=== PATIENT | female | born 1945 | race Caucasian/White ===

== ENCOUNTER → 2016-09-19 | Outpatient (CLI) | payer MEDICARE ==
[~2016-09-19] MED LIST: DICL75TA2 PO; LEVO75TA57 PO; LEVO75TA6 PO; LVT.025T PO; TRAM50TA2 PO; TRM50T PO
[2016-09-19 09:48] LABS: BASOPHILS % (AUTO) 0 % (0-10); EOSINOPHILS # (AUTO) 0.1 10^3/uL (0.0-0.3); EOSINOPHILS % (AUTO) 2 % (0-10); LYMPHOCYTES # (AUTO) 1.4 X 10^3 (1.0-4.0); LYMPHOCYTES % (AUTO) 24 % (12-44); MEAN CORPUSCULAR HEMOGLOBIN 29 PG (25-34); MEAN CORPUSCULAR HGB CONC 33 G/DL (32-36); MEAN CORPUSCULAR VOLUME 89 FL (80-99); MEAN PLATELET VOLUME 9.4 FL (7.4-10.4); MONOCYTES # (AUTO) 0.5 X 10^3 (0.0-1.0); MONOCYTES % (AUTO) 9 % (0-12); NEUTROPHILS # (AUTO) 3.9 X 10^3 (1.8-7.8); NEUTROPHILS % (AUTO) 65 % (42-75); PLATELET COUNT 290 10^3/uL (130-400); RED CELL DISTRIBUTION WIDTH 13.9 % (10.0-14.5)
[2016-09-19 10:08] LABS: ALANINE AMINOTRANSFERASE 21 U/L (0-55); ALBUMIN 4.2 G/DL (3.2-4.5); ANION GAP 8 MMOL/L (5-14); ASPARTATE AMINO TRANSFERASE 20 U/L (5-34); BILIRUBIN,TOTAL 0.3 MG/DL (0.1-1.0); BLOOD UREA NITROGEN 16 MG/DL (7-18); BUN/CREATININE RATIO 21; CALCIUM 9.2 MG/DL (8.5-10.1); CARBON DIOXIDE 23 MMOL/L (21-32); CHLORIDE 110 MMOL/L (98-107); CREATININE SERUM 0.78 MG/DL (0.60-1.30); GFR ESTIMATED > 60; GLUCOSE 95 MG/DL (70-105); POTASSIUM 4.3 MMOL/L (3.6-5.0); SODIUM 141 MMOL/L (135-145); TOTAL PROTEIN 7.1 G/DL (6.4-8.2)
== END ==
LOC: ONC 09:25
PROVIDERS: ATTEND Internal Medicine Hematology & Oncology
DX: Z08 Encounter for follow-up examination after completed treatment for malignant neoplasm (principal); Z85.3 Personal history of malignant neoplasm of breast; N18.3 Chronic kidney disease, stage 3 (moderate); Z79.899 Other long term (current) drug therapy
CPT/HCPCS: 80053; 85025; 99213

== ENCOUNTER → 2016-09-19 | Outpatient (CLI) | payer MEDICARE ==
[2016-09-19 09:50] LABS: BASOPHILS % (AUTO) 0 % (0-10); EOSINOPHILS # (AUTO) 0.1 10^3/uL (0.0-0.3); EOSINOPHILS % (AUTO) 2 % (0-10); LYMPHOCYTES # (AUTO) 1.4 X 10^3 (1.0-4.0); LYMPHOCYTES % (AUTO) 24 % (12-44); MEAN CORPUSCULAR HEMOGLOBIN 29 PG (25-34); MEAN CORPUSCULAR HGB CONC 33 G/DL (32-36); MEAN CORPUSCULAR VOLUME 89 FL (80-99); MEAN PLATELET VOLUME 9.4 FL (7.4-10.4); MONOCYTES # (AUTO) 0.5 X 10^3 (0.0-1.0); MONOCYTES % (AUTO) 9 % (0-12); NEUTROPHILS # (AUTO) 3.9 X 10^3 (1.8-7.8); NEUTROPHILS % (AUTO) 65 % (42-75); PLATELET COUNT 290 10^3/uL (130-400); RED CELL DISTRIBUTION WIDTH 13.9 % (10.0-14.5)
[2016-09-19 11:09] LABS: ALANINE AMINOTRANSFERASE 22 U/L (0-55); ALBUMIN 4.2 G/DL (3.2-4.5); ANION GAP 9 MMOL/L (5-14); ASPARTATE AMINO TRANSFERASE 20 U/L (5-34); BILIRUBIN,TOTAL 0.3 MG/DL (0.1-1.0); BLOOD UREA NITROGEN 17 MG/DL (7-18); BUN/CREATININE RATIO 22; CALCIUM 9.2 MG/DL (8.5-10.1); CARBON DIOXIDE 22 MMOL/L (21-32); CHLORIDE 110 MMOL/L (98-107); CHOLESTEROL 220 MG/DL (< 200); CREATININE SERUM 0.79 MG/DL (0.60-1.30); DIRECT LDL 136 MG/DL (1-129); GFR ESTIMATED > 60; GLUCOSE 91 MG/DL (70-105); POTASSIUM 4.3 MMOL/L (3.6-5.0); SODIUM 141 MMOL/L (135-145); TOTAL PROTEIN 7.1 G/DL (6.4-8.2); TRIGLYCERIDES 173 MG/DL (<150); VLDL CHOLESTEROL 35 MG/DL (5-40)
[2016-09-19 11:43] LABS: THYROID STIMULATING HORMONE 1.53 UIU/ML (0.35-4.94)
== END ==
LOC: LAB 09:27
PROVIDERS: ATTEND Family Medicine
DX: E03.9 Hypothyroidism, unspecified (principal); R73.09 Other abnormal glucose
CPT/HCPCS: 36415; 80053; 80061; 83036; 84439; 84443; 85025

== ENCOUNTER → 2016-10-22 | Outpatient (CLI) | payer MEDICARE ==
--- NOTE | 2016-10-22 19:06 | Diagnostic Imaging Report ---
Bilateral diagnostic mammogram. The current study was also evaluated with a Computer Aided Detection (CAD) system. INDICATION: History of breast cancer on the left side status post lumpectomy and radiation. Comparison exams include 10/14/15 and other studies. FINDINGS: Scattered fibroglandular densities are seen. Lumpectomy changes are also seen in the left breast. There are punctate benign-appearing calcifications seen. Allowing for technique and positional differences, no suspicious change is seen. IMPRESSION: No significant change. ACR BI-RADS Category 2: Benign findings. Result letter will be mailed to the patient. Note: At least 10% of breast cancer is not imaged by mammography. Dictated by: Dictated on workstation # [id number]
== END ==
LOC: RAD 12:22
PROVIDERS: ATTEND Internal Medicine Hematology & Oncology
DX: Z85.3 Personal history of malignant neoplasm of breast; Z98.890 Other specified postprocedural states; Z92.3 Personal history of irradiation
CPT/HCPCS: 77066

== ENCOUNTER → 2017-03-21 | Outpatient (CLI) | payer MEDICARE ==
[2017-03-21 10:15] LABS: BASOPHILS % (AUTO) 0 % (0-10); EOSINOPHILS # (AUTO) 0.1 10^3/uL (0.0-0.3); EOSINOPHILS % (AUTO) 2 % (0-10); LYMPHOCYTES # (AUTO) 1.3 X 10^3 (1.0-4.0); LYMPHOCYTES % (AUTO) 22 % (12-44); MEAN CORPUSCULAR HEMOGLOBIN 30 PG (25-34); MEAN CORPUSCULAR HGB CONC 33 G/DL (32-36); MEAN CORPUSCULAR VOLUME 89 FL (80-99); MEAN PLATELET VOLUME 9.5 FL (7.4-10.4); MONOCYTES # (AUTO) 0.4 X 10^3 (0.0-1.0); MONOCYTES % (AUTO) 6 % (0-12); NEUTROPHILS # (AUTO) 4.1 X 10^3 (1.8-7.8); NEUTROPHILS % (AUTO) 70 % (42-75); PLATELET COUNT 299 10^3/uL (130-400); RED CELL DISTRIBUTION WIDTH 13.7 % (10.0-14.5); WHITE BLOOD COUNT 5.9 10^3/uL (4.3-11.0)
[2017-03-21 10:36] LABS: ALANINE AMINOTRANSFERASE 19 U/L (0-55); ALBUMIN 4.2 GM/DL (3.2-4.5); ANION GAP 8 MMOL/L (5-14); ASPARTATE AMINO TRANSFERASE 18 U/L (5-34); BILIRUBIN,TOTAL 0.5 MG/DL (0.1-1.0); BLOOD UREA NITROGEN 15 MG/DL (7-18); BUN/CREATININE RATIO 19; CALCIUM 9.3 MG/DL (8.5-10.1); CARBON DIOXIDE 24 MMOL/L (21-32); CHLORIDE 107 MMOL/L (98-107); CREATININE SERUM 0.81 MG/DL (0.60-1.30); GFR ESTIMATED > 60; GLUCOSE 105 MG/DL (70-105); POTASSIUM 4.2 MMOL/L (3.6-5.0); SODIUM 139 MMOL/L (135-145); TOTAL PROTEIN 7.1 GM/DL (6.4-8.2)
== END ==
LOC: ONC 09:57
PROVIDERS: ATTEND Nurse Practitioner Adult Health
DX: Z08 Encounter for follow-up examination after completed treatment for malignant neoplasm (principal); Z85.3 Personal history of malignant neoplasm of breast; N18.3 Chronic kidney disease, stage 3 (moderate); E03.9 Hypothyroidism, unspecified; M19.91 Primary osteoarthritis, unspecified site; M85.80 Other specified disorders of bone density and structure, unspecified site; Z82.49 Family history of ischemic heart disease and other diseases of the circulatory system; Z92.3 Personal history of irradiation; Z79.899 Other long term (current) drug therapy
CPT/HCPCS: 36415; 80053; 85025; 99213

== ENCOUNTER 2017-09-19 10:26 | Outpatient (RCR) | payer MEDICARE | END 2017-12-18 | disposition home or self-care (01) | LOC: ONC 10:26 | PROVIDERS: ATTEND Internal Medicine Hematology & Oncology | DX: Z08 Encounter for follow-up examination after completed treatment for malignant neoplasm (principal); Z85.3 Personal history of malignant neoplasm of breast; N18.3 Chronic kidney disease, stage 3 (moderate); E03.9 Hypothyroidism, unspecified; M19.91 Primary osteoarthritis, unspecified site; M85.80 Other specified disorders of bone density and structure, unspecified site; Z82.49 Family history of ischemic heart disease and other diseases of the circulatory system; Z92.3 Personal history of irradiation; Z79.899 Other long term (current) drug therapy | CPT/HCPCS: 99213 ==

== ENCOUNTER → 2017-10-24 | Outpatient (CLI) | payer MEDICARE ==
--- NOTE | 2017-10-24 13:18 | Diagnostic Imaging Report ---
INDICATION: 71-year-old postmenopausal female presents for bone density screening. History of cancer therapy. COMPARISON: 03/21/2012. FINDINGS: AP Spine L1-L4: [BMD (g/cm2): 1.309] [T-Score: 0.9] [Z-Score: 1.9] [BMD Previous: 1.155] [BMD % Change: 13.3] LT Hip Neck: [BMD (g/cm2): 0.924] [T-Score: -0.8] [Z-Score: 0.6] LT Hip Total: [BMD (g/cm2): 0.988] [T-Score: -0.2] [Z-Score: 1.0] RT Hip Neck: [BMD (g/cm2): 0.841] [T-Score: -1.4] [Z-Score: 0.0] RT Hip Total: [BMD (g/cm2): 0.935] [T-score: -0.6] [Z-Score: 0.6] The mean bone mineral density of both hips is 0.962 g/cm2, with a T score of -0.4 and a Z score of 0.8. There has been a 7.5% increase in mean hip bone mineral density since the prior study. *Indicates significant change from prior examination based on 95% confidence level. World Health Organization criteria for BMD interpretation classify patients as Normal (T-score at or above -1.0), Osteopenic (T-score between -1.0 and -2.5) or Osteoporotic (T-score at or below -2.5). LIMITATIONS AND MODIFICATION: Degenerative changes may falsely elevate the bone mineral density. FRACTURE RISK (FRAX SCORE): The ten year probability of (%): Major Osteoporotic Fracture: 10.0%. Hip Fracture:1.6% IMPRESSION: 1. Osteopenia, based on a T score of -1.4 in the right femoral neck. 2. There has been a statistically significant increase in BMD since prior exam, detailed above. 3. See below National Osteoporosis Foundation guidelines on when to potentially initiate pharmacologic therapy. Based on the National Osteoporosis Foundation Guidelines, pharmacologic treatment should be initiated in any of the following, unless clinical conditions suggest otherwise: * Any patient with prior fragility fracture of the hip or vertebrae. A spine fracture indicates 5X risk for subsequent spine fracture and 2X risk for subsequent hip fracture. * Osteoporosis (T-score <-2.5). * Postmenopausal women and men age 50 and older with low bone mass/osteopenia (T-score between -1.0 and -2.5) by DXA and 10-year major osteoporotic fracture greater than 20% or a 10-year probability of hip fracture greater than 3%. These fracture risks are supplied above in the FRAX score, if applicable. * Clinician judgment and/or patient preferences may indicate treatment for people with 10-year fracture probabilities above or below these levels. Dictated by: Dictated on workstation # [id number]
--- NOTE | 2017-10-24 19:31 | Diagnostic Imaging Report ---
INDICATION: Routine screening. Comparison is made with prior mammograms from 10/22/2016 and 10/14/2015. 2-D and 3-D bilateral screening mammography was performed. The current study was also evaluated with a Computer Aided Detection (CAD) system. FINDINGS: Scattered fibroglandular densities are identified bilaterally. There is a focal irregular density in the medial left breast anterior depth on the CC view. No correlate on the MLO view is seen. This most likely represents superimposed tissue. Additional views are recommended. Otherwise, the breasts appear stable. No suspicious microcalcifications are seen. The axillae are unremarkable. IMPRESSION: Left breast density. Additional views including spot compression and rolled CC views are recommended for further evaluation. ACR BI-RADS Category 0: Incomplete. (Needs additional imaging evaluation). Result letter will be mailed to the patient. Note: At least 10% of breast cancer is not imaged by mammography. Dictated by: Dictated on workstation # [id number]
== END ==
LOC: RAD 07:53
PROVIDERS: ATTEND Internal Medicine Hematology & Oncology
DX: Z12.31 Encounter for screening mammogram for malignant neoplasm of breast (principal); R92.2 Inconclusive mammogram; M85.851 Other specified disorders of bone density and structure, right thigh; Z78.0 Asymptomatic menopausal state; Z85.3 Personal history of malignant neoplasm of breast; T45.1X5A Adverse effect of antineoplastic and immunosuppressive drugs, initial encounter
CPT/HCPCS: 77067; 77080

== ENCOUNTER → 2017-10-28 | Outpatient (CLI) | payer MEDICARE ==
--- NOTE | 2017-10-28 17:46 | Diagnostic Imaging Report ---
INDICATION: Left breast density. Patient presents for additional views. Correlation is made with screening study from 10/24/2017. 2-D and 3-D unilateral left diagnostic mammography was performed including spot compression and rolled CC views and 90-degree lateral view. The current study was also evaluated with a Computer Aided Detection (CAD) system. FINDINGS: Scattered fibronodular densities are noted. Additional views fail to demonstrate a discrete mass. The area of density most likely represents superimposed tissue. IMPRESSION: Additional views fail to demonstrate a discrete mass. The patient may return to routine annual screening mammography. ACR BI-RADS Category 1: Negative. Result letter will be mailed to the patient. Note: At least 10% of breast cancer is not imaged by mammography. Dictated by: Dictated on workstation # [id number]
== END ==
LOC: RAD 14:01
PROVIDERS: ATTEND Internal Medicine Hematology & Oncology
DX: C50.412 Malignant neoplasm of upper-outer quadrant of left female breast (principal); J98.4 Other disorders of lung

== ENCOUNTER 2018-09-18 10:09 | Outpatient (RCR) | payer MEDICARE ==
[2018-09-18 10:06] LABS: BASOPHILS % (AUTO) 0 % (0-10); EOSINOPHILS # (AUTO) 0.1 10^3/uL (0.0-0.3); EOSINOPHILS % (AUTO) 1 % (0-10); HEMATOCRIT 41 % (35-52); HEMOGLOBIN 13.9 G/DL (11.5-16.0); LYMPHOCYTES # (AUTO) 1.3 X 10^3 (1.0-4.0); LYMPHOCYTES % (AUTO) 23 % (12-44); MEAN CORPUSCULAR HEMOGLOBIN 29 PG (25-34); MEAN CORPUSCULAR HGB CONC 34 G/DL (32-36); MEAN CORPUSCULAR VOLUME 87 FL (80-99); MEAN PLATELET VOLUME 9.6 FL (7.4-10.4); MONOCYTES # (AUTO) 0.4 X 10^3 (0.0-1.0); MONOCYTES % (AUTO) 8 % (0-12); NEUTROPHILS # (AUTO) 3.8 X 10^3 (1.8-7.8); NEUTROPHILS % (AUTO) 68 % (42-75); PLATELET COUNT 292 10^3/uL (130-400); RED CELL DISTRIBUTION WIDTH 13.9 % (10.0-14.5); WHITE BLOOD COUNT 5.6 10^3/uL (4.3-11.0)
[2018-09-18 10:34] LABS: ALANINE AMINOTRANSFERASE 42 U/L (0-55); ALBUMIN 4.2 GM/DL (3.2-4.5); ALKALINE PHOSPHATASE 92 U/L (40-136); BILIRUBIN,TOTAL 0.4 MG/DL (0.1-1.0); BUN/CREATININE RATIO 20; CALCIUM 9.2 MG/DL (8.5-10.1); CARBON DIOXIDE 20 MMOL/L (21-32); CHLORIDE 109 MMOL/L (98-107); CREATININE SERUM 0.83 MG/DL (0.60-1.30); GFR ESTIMATED > 60; GLUCOSE 131 MG/DL (70-105); POTASSIUM 4.2 MMOL/L (3.6-5.0); SODIUM 140 MMOL/L (135-145); TOTAL PROTEIN 7.2 GM/DL (6.4-8.2)
== END 2018-12-17 | disposition home or self-care (01) ==
LOC: ONC 10:09
PROVIDERS: ATTEND Internal Medicine Hematology & Oncology
DX: Z08 Encounter for follow-up examination after completed treatment for malignant neoplasm (principal); Z85.3 Personal history of malignant neoplasm of breast; M85.80 Other specified disorders of bone density and structure, unspecified site; N18.3 Chronic kidney disease, stage 3 (moderate); E03.9 Hypothyroidism, unspecified; M19.91 Primary osteoarthritis, unspecified site; Z82.49 Family history of ischemic heart disease and other diseases of the circulatory system; Z92.3 Personal history of irradiation
CPT/HCPCS: 36415; 80053; 85025; 99213

== ENCOUNTER → 2018-10-28 | Outpatient (CLI) | payer MEDICARE ==
--- NOTE | 2018-10-28 20:15 | Diagnostic Imaging Report ---
INDICATION: Left axillary pain. CORRELATION is made with left breast ultrasound from 10/07/2013. FINDINGS: Interrogation of the area of pain in the left lateral breast and axillary region was performed. The patient's fluid collection near the lumpectomy site at the 4 o'clock location has decreased in size, now measuring 1.7 x 0.7 x 2.4 cm. This compares with 4.0 x 2.7 x 1.4 cm on prior. No other abnormality is seen. IMPRESSION: BI-RADS category 2. Decrease in size of fluid collection in the lateral left breast when compared with prior exam from 2013. ACR BI-RADS Category 2: Benign findings. Result letter will be mailed to the patient. Note: At least 10% of breast cancer is not imaged by mammography. Dictated by: Dictated on workstation # [id number]
--- NOTE | 2018-10-28 20:29 | Diagnostic Imaging Report ---
INDICATION: Routine screening. Comparison is made with prior mammograms from 10/24/2017 and 10/22/2016. 2-D and 3-D bilateral screening mammography was performed. The current study was also evaluated with a Computer Aided Detection (CAD) system. 3-D tomosynthesis was also performed and reviewed. FINDINGS: Scattered fibroglandular densities are identified bilaterally. The right breast is unremarkable. There are lumpectomy changes in the left breast in the region of the axilla. This appears stable. No new mass or malignant-appearing microcalcifications are seen. IMPRESSION: No mammographic features suspicious for malignancy are identified. ACR BI-RADS Category 2: Benign findings. Result letter will be mailed to the patient. Note: At least 10% of breast cancer is not imaged by mammography. Dictated by: Dictated on workstation # [id number]
== END ==
LOC: RAD 13:42
PROVIDERS: ATTEND Nurse Practitioner Adult Health
DX: Z12.31 Encounter for screening mammogram for malignant neoplasm of breast (principal); M79.622 Pain in left upper arm; Z85.3 Personal history of malignant neoplasm of breast; Z98.890 Other specified postprocedural states
CPT/HCPCS: 76642; 77067

== ENCOUNTER → 2019-10-19 | Outpatient (CLI) | payer MEDICARE ==
[2019-10-19 11:04] LABS: BASOPHILS % (AUTO) 0 % (0-10); EOSINOPHILS # (AUTO) 0.1 10^3/uL (0.0-0.3); EOSINOPHILS % (AUTO) 2 % (0-10); HEMATOCRIT 41 % (35-52); HEMOGLOBIN 13.7 G/DL (11.5-16.0); LYMPHOCYTES # (AUTO) 1.4 X 10^3 (1.0-4.0); LYMPHOCYTES % (AUTO) 23 % (12-44); MEAN CORPUSCULAR HEMOGLOBIN 30 PG (25-34); MEAN CORPUSCULAR HGB CONC 34 G/DL (32-36); MEAN CORPUSCULAR VOLUME 89 FL (80-99); MEAN PLATELET VOLUME 9.6 FL (7.4-10.4); MONOCYTES # (AUTO) 0.4 X 10^3 (0.0-1.0); MONOCYTES % (AUTO) 7 % (0-12); NEUTROPHILS % (AUTO) 68 % (42-75); PLATELET COUNT 274 10^3/uL (130-400); RED CELL DISTRIBUTION WIDTH 13.3 % (10.0-14.5); WHITE BLOOD COUNT 5.9 10^3/uL (4.3-11.0)
[2019-10-19 11:21] LABS: ALANINE AMINOTRANSFERASE 34 U/L (0-55); ALBUMIN 4.1 GM/DL (3.2-4.5); ALKALINE PHOSPHATASE 85 U/L (40-136); BILIRUBIN,TOTAL 0.5 MG/DL (0.1-1.0); BUN/CREATININE RATIO 20; CALCIUM 9.2 MG/DL (8.5-10.1); CARBON DIOXIDE 21 MMOL/L (21-32); CHLORIDE 107 MMOL/L (98-107); CREATININE SERUM 0.86 MG/DL (0.60-1.30); GFR ESTIMATED > 60; GLUCOSE 96 MG/DL (70-105); POTASSIUM 4.4 MMOL/L (3.6-5.0); SODIUM 138 MMOL/L (135-145); TOTAL PROTEIN 7.1 GM/DL (6.4-8.2)
== END ==
LOC: EDSTATUS 12-18 14:58 → ONC 10:54
PROVIDERS: ATTEND Internal Medicine Hematology & Oncology
DX: C50.412 Malignant neoplasm of upper-outer quadrant of left female breast (principal); M85.88 Other specified disorders of bone density and structure, other site; Z98.890 Other specified postprocedural states; Z92.3 Personal history of irradiation
CPT/HCPCS: 80053; 85025; G0463; 99213

== ENCOUNTER → 2019-11-02 | Outpatient (CLI) | payer MEDICARE ==
--- NOTE | 2019-11-03 12:30 | Diagnostic Imaging Report ---
INDICATION: Routine screening. Comparison is made with prior mammogram from 10/28/2018 and 10/24/2017. 2-D and 3-D bilateral screening mammography was performed with CAD. Scattered fibroglandular densities are identified bilaterally. Lumpectomy changes in the region of the left axilla is again noted. Overall parenchymal pattern appears to be stable. No dominant mass or malignant appearing microcalcifications are seen. IMPRESSION: BI-RADS Category 2 No mammographic features suspicious for malignancy are identified. ACR BI-RADS Category 2: Benign findings. Result letter will be mailed to the patient. Note: At least 10% of breast cancer is not imaged by mammography. Dictated by: Dictated on workstation # [id number]
== END ==
LOC: RAD 14:14
PROVIDERS: ATTEND Internal Medicine Hematology & Oncology
DX: Z12.31 Encounter for screening mammogram for malignant neoplasm of breast (principal)
CPT/HCPCS: 77063; 77067

== ENCOUNTER → 2020-06-10 | Outpatient (CLI) | payer MEDICARE ==
--- NOTE | 2020-06-10 11:30 | Diagnostic Imaging Report ---
INDICATION: Abdominal pain with hematuria. FINDINGS: There is a 3 mm calculus overlying the lateral calyx of the right kidney. Possible tiny calculus laterally in the left lower kidney. No calcifications are seen along the ureters or bladder. There is no organomegaly. Moderate degenerative changes noted of the lumbosacral spine. There are multiple granulomatous calcifications of the spleen. IMPRESSION: 1. Question of 3 mm calculi overlying the lower pole calyx of both kidneys. No other calcifications are demonstrated. Dictated by: Dictated on workstation # [id number]
== END ==
LOC: RAD 10:27
PROVIDERS: ATTEND Nurse Practitioner Family
DX: R31.9 Hematuria, unspecified (principal); R10.9 Unspecified abdominal pain
CPT/HCPCS: 74018

== ENCOUNTER → 2020-10-31 | Outpatient (CLI) | payer MEDICARE ==
[2020-10-31 10:36] LABS: BASOPHILS % (AUTO) 1 % (0-10); EOSINOPHILS # (AUTO) 0.1 10^3/uL (0.0-0.3); EOSINOPHILS % (AUTO) 2 % (0-10); HEMATOCRIT 43 % (35-52); LYMPHOCYTES # (AUTO) 1.4 10^3/uL (1.0-4.0); LYMPHOCYTES % (AUTO) 22 % (12-44); MEAN CORPUSCULAR HEMOGLOBIN 30 pg (25-34); MEAN CORPUSCULAR HGB CONC 33 g/dL (32-36); MEAN CORPUSCULAR VOLUME 90 fL (80-99); MEAN PLATELET VOLUME 9.5 fL (9.0-12.2); MONOCYTES # (AUTO) 0.6 10^3/uL (0.0-1.0); MONOCYTES % (AUTO) 9 % (0-12); NEUTROPHILS # (AUTO) 4.4 10^3/uL (1.8-7.8); NEUTROPHILS % (AUTO) 67 % (42-75); PLATELET COUNT 251 10^3/uL (130-400); WHITE BLOOD COUNT 6.5 10^3/uL (4.3-11.0)
[2020-10-31 10:56] LABS: ALANINE AMINOTRANSFERASE 27 U/L (0-55); ALKALINE PHOSPHATASE 87 U/L (40-136); BILIRUBIN,TOTAL 0.3 MG/DL (0.1-1.0); BUN/CREATININE RATIO 20; CALCIUM 8.8 MG/DL (8.5-10.1); CARBON DIOXIDE 24 MMOL/L (21-32); CHLORIDE 109 MMOL/L (98-107); CREATININE SERUM 0.85 MG/DL (0.60-1.30); GFR ESTIMATED > 60; GLUCOSE 89 MG/DL (70-105); POTASSIUM 4.4 MMOL/L (3.6-5.0); SODIUM 140 MMOL/L (135-145); TOTAL PROTEIN 6.9 GM/DL (6.4-8.2)
== END ==
LOC: ONC 10:22
PROVIDERS: ATTEND Internal Medicine Hematology & Oncology
DX: C50.412 Malignant neoplasm of upper-outer quadrant of left female breast (principal); Z90.12 Acquired absence of left breast and nipple; Z92.3 Personal history of irradiation; E66.9 Obesity, unspecified; E03.9 Hypothyroidism, unspecified
CPT/HCPCS: 80053; 85025; G0463; 99213

== ENCOUNTER → 2020-11-02 | Outpatient (CLI) | payer MEDICARE ==
--- NOTE | 2020-11-02 13:32 | Diagnostic Imaging Report ---
INDICATION: Digital screening with CAD 2-D and 3-D. COMPARISON: 10/2019, 10/2018 and 10/2017 FINDINGS: Scattered fibroglandular densities are present in the breasts. No mass or architectural distortion, spiculated lesion or suspicious calcifications. No findings to suggest malignancy. IMPRESSION: Stable negative mammograms. BI-RADS Category 1 ACR BI-RADS Category 1: Negative. Result letter will be mailed to the patient. Note: At least 10% of breast cancer is not imaged by mammography. Dictated by: Dictated on workstation # [id number]
== END ==
LOC: RAD 11:00
PROVIDERS: ATTEND Internal Medicine Hematology & Oncology
DX: Z12.31 Encounter for screening mammogram for malignant neoplasm of breast (principal)
CPT/HCPCS: 77063; 77067

== ENCOUNTER → 2021-05-03 | Outpatient (CLI) | payer MEDICARE | LOC: LABNPT 08:43 | PROVIDERS: ATTEND Family Medicine | DX: R53.83 Other fatigue (principal); Z20.822 Contact with and (suspected) exposure to COVID-19 | CPT/HCPCS: 87635 ==

== ENCOUNTER → 2021-11-03 | Outpatient (CLI) | payer MEDICARE ==
--- NOTE | 2021-11-03 13:30 | Diagnostic Imaging Report ---
INDICATION: Routine screening. Comparison is made with prior mammogram 11/02/2020 and 11/02/2019. 2-D and 3-D bilateral screening mammography was performed with CAD. Scattered fibroglandular densities are identified bilaterally. The parenchymal pattern is stable. No dominant mass or malignant-appearing microcalcifications are seen. Axillae are unremarkable. IMPRESSION: No mammographic features suspicious for malignancy are identified. ACR BI-RADS Category 1: Negative. Result letter will be mailed to the patient. Note: At least 10% of breast cancer is not imaged by mammography. BI-RADS Category 1 Dictated by: Dictated on workstation # [id number]
== END ==
LOC: RAD 11:12
PROVIDERS: ATTEND Internal Medicine Hematology & Oncology
DX: Z12.31 Encounter for screening mammogram for malignant neoplasm of breast (principal)
CPT/HCPCS: 77063; 77067

== ENCOUNTER → 2022-03-29 | Outpatient (CLI) | payer MEDICARE ==
--- NOTE | 2022-03-29 17:05 | Diagnostic Imaging Report ---
INDICATION: Bilateral knee pain COMPARISON: None. FINDINGS: Multiple radiographic views of the bilateral knees were obtained and demonstrate no acute fracture or dislocation. No focal osseous lesions are seen. No significant joint effusion is seen. The surrounding soft tissue structures are unremarkable. There are no radiopaque foreign bodies. IMPRESSION: 1. Unremarkable radiographic exam of the bilateral knees. Dictated by: Dictated on workstation # [id number]
--- NOTE | 2022-03-29 17:08 | Diagnostic Imaging Report ---
EXAMINATION: Left foot 3 views. HISTORY: Foot pain. COMPARISON: None available. FINDINGS: No fracture. No dislocation. Joint spaces are normal. There are enthesophytes at the insertion of the Achilles tendon and a small heel spur. IMPRESSION: No acute fracture. Dictated by: Dictated on workstation # [id number]
== END ==
LOC: RAD 11:41
PROVIDERS: ATTEND Family Medicine
DX: M25.561 Pain in right knee (principal); M79.672 Pain in left foot
CPT/HCPCS: 73630

== ENCOUNTER → 2022-11-07 | Outpatient (CLI) | payer MEDICARE ==
--- NOTE | 2022-11-07 10:34 | Diagnostic Imaging Report ---
EXAMINATION: 3D unilateral diagnostic left mammogram with CAD. INDICATION: Abnormal left breast screening mammogram. FINDINGS: The recent screening mammogram performed on 11/05/2022 noted a small area of architectural distortion in the retroareolar region of the left breast. The compression views of this area do show that there is a small spiculated mass in this region. This finding is worrisome for malignancy. I would recommend that ultrasound be performed for further study. IMPRESSION: Ultrasound of the left breast would be recommended for further evaluation. ACR BI-RADS Category 0: Incomplete. (Needs additional imaging evaluation). Result letter will be mailed to the patient. Note: At least 10% of breast cancer is not imaged by mammography. Dictated by: Dictated on workstation # [id number]
--- NOTE | 2022-11-07 10:47 | Diagnostic Imaging Report ---
Ultrasound of the left breast IMPRESSION: Abnormal mammogram The diagnostic mammogram performed prior to this study suggested a spiculated mass in the retroareolar region of the left breast. This exam was technically difficult due to the inversion of the left nipple and the shadowing from the retroareolar region. However there is a small 8 x 4 x 8 mm hypoechoic lesion in the immediate retroareolar region. This finding would correspond to the abnormality seen on the diagnostic mammogram and this hypoechoic lesion is suspicious for malignancy. An ultrasound-guided biopsy would be recommended. The left axilla was also examined during the course of this exam. There were 2 roughly 1 cm lymph nodes in this region. These lymph nodes have a generally benign appearance. IMPRESSION: 1. There is a small hypoechoic lesion in the immediate retroareolar region. This finding is suspicious for malignancy and an ultrasound-guided biopsy would be recommended. 2. These results were called to Dr. Hansen at the time of this dictation. . ACR BI-RADS Category 4: Suspicious abnormality. Dictated by: Dictated on workstation # [id number]
== END ==
LOC: RAD 08:01
PROVIDERS: ATTEND Nurse Practitioner
DX: C50.412 Malignant neoplasm of upper-outer quadrant of left female breast (principal); R92.8 Other abnormal and inconclusive findings on diagnostic imaging of breast
CPT/HCPCS: 76642; 77065; G0279

== ENCOUNTER → 2022-11-14 | Outpatient (CLI) | payer MEDICARE ==
[~2022-11-14] MED LIST changes: +LIDOCAINE 1% INJ 10 ML VIAL INJ ONE; +LIDOCAINE 1% INJ 10 ML VIAL ONE
[2022-11-14 13:00] VITALS: BP 136/85
--- NOTE | 2022-11-14 14:58 | Diagnostic Imaging Report ---
Indication: Left breast nodule. Patient presented for ultrasound guided core biopsy. Patient brought to the sonographic suite and placed on table in the supine position. Ultrasound imaging of the left breast was performed evaluate appropriate entry site. The left breast was then prepped and draped usual sterile fashion. Small amount 1% lidocaine was utilized for local anesthesia. Numerous core biopsies were obtained of the area of hypoechogenicity in the retroareolar left breast utilizing a 14-gauge achieve needle. A marker clip was then deployed. The needle was removed and hemostasis was obtained. Patient tolerated the procedure well and was sent for post procedure mammogram on a separate dedicated mammographic unit in satisfactory condition. IMPRESSION: Successful ultrasound guided core biopsy of the retroareolar left breast. Pathology results are currently pending. Dictated by: Dictated on workstation # [id number]
--- NOTE | 2022-11-14 18:50 | Diagnostic Imaging Report ---
INDICATION: Left breast nodule, status post ultrasound-guided biopsy. EXAMINATION: Unilateral left 2D CC and ML mammography was performed after patient underwent ultrasound-guided biopsy of the left breast. There is a marker clip in the retroareolar left breast adjacent to the previously noted nodule. IMPRESSION: Clip placement, status post ultrasound-guided core biopsy. Dictated by: Dictated on workstation # [id number]
== END ==
LOC: RAD 12:51
PROVIDERS: ATTEND Nurse Practitioner
DX: C50.412 Malignant neoplasm of upper-outer quadrant of left female breast (principal); Z98.890 Other specified postprocedural states
CPT/HCPCS: 19083; 77065; A4648; G0279

== ENCOUNTER → 2023-02-12 | Outpatient (RCR) | payer MEDICARE ==
[~2023-02-12] MED LIST changes: -LIDOCAINE 1% INJ 10 ML VIAL INJ ONE; -LIDOCAINE 1% INJ 10 ML VIAL ONE
== END | disposition home or self-care (01) ==
LOC: ONC 02-04 10:47
PROVIDERS: ATTEND Radiology Radiation Oncology
DX: Z51.0 Encounter for antineoplastic radiation therapy (principal); C50.412 Malignant neoplasm of upper-outer quadrant of left female breast; E03.9 Hypothyroidism, unspecified; E66.9 Obesity, unspecified; Z83.3 Family history of diabetes mellitus; Z82.49 Family history of ischemic heart disease and other diseases of the circulatory system; Z84.1 Family history of disorders of kidney and ureter; Z82.3 Family history of stroke
CPT/HCPCS: 77290; 77293; 77300; 77301; 77334; 77338; 77385; 99205

== ENCOUNTER 2023-03-11 13:07 | Outpatient (RCR) | payer MEDICARE | END 2023-03-14 | disposition home or self-care (01) | LOC: ONC 13:07 | PROVIDERS: ATTEND Radiology Radiation Oncology | DX: Z51.0 Encounter for antineoplastic radiation therapy (principal); C50.412 Malignant neoplasm of upper-outer quadrant of left female breast; E03.9 Hypothyroidism, unspecified; E66.9 Obesity, unspecified; Z83.3 Family history of diabetes mellitus; Z82.49 Family history of ischemic heart disease and other diseases of the circulatory system; Z84.1 Family history of disorders of kidney and ureter; Z82.3 Family history of stroke | CPT/HCPCS: 77336; 77385; 77470 ==

== ENCOUNTER → 2023-03-19 | Outpatient (CLI) | payer MEDICARE ==
--- NOTE | 2023-03-19 12:27 | Diagnostic Imaging Report ---
INDICATION: Postmenopausal state. COMPARISON: 10/24/2017. FINDINGS: AP Spine L2-L4: [BMD (g/cm2): 1.116] [T-Score: -0.7] [Z-Score: 0.4] [BMD Previous: 1.309] [BMD % Change: -14.7*] LT Hip Neck: [BMD (g/cm2): 0.836] [T-Score: -1.5] [Z-Score: 0.2] LT Hip Total: [BMD (g/cm2):0.994] [T-Score:-0.1] [Z-Score: 1.3] [BMD Previous: 0.988] [BMD % Change: 0.6] RT Hip Neck: [BMD (g/cm2):0.838] [T-Score:-1.4] [Z-Score:0.2] RT Hip Total: [BMD (g/cm2):0.965] [T-score:-0.3] [Z-Score:1.1] [BMD Previous:0.935] [BMD % Change:3.2] *Indicates significant change from prior examination based on 95% confidence level. World Health Organization criteria for BMD interpretation classify patients as Normal (T-score at or above -1.0), Osteopenic (T-score between -1.0 and -2.5) or Osteoporotic (T-score at or below -2.5). LIMITATIONS AND MODIFICATION: None. FRACTURE RISK (FRAX SCORE): The ten year probability of (%): Major Osteoporotic Fracture: [12.4] Hip Fracture: [2.8] IMPRESSION: 1. Osteopenia (Low bone mass). 2. Bone mineral density within the lumbar spine has significantly decreased since the prior examination. Bone mineral density within the bilateral hips has not significantly changed from the prior exam. 3. See below National Osteoporosis Foundation guidelines on when to potentially initiate pharmacologic therapy. Based on the National Osteoporosis Foundation Guidelines, pharmacologic treatment should be initiated in any of the following, unless clinical conditions suggest otherwise: * Any patient with prior fragility fracture of the hip or vertebrae. A spine fracture indicates 5X risk for subsequent spine fracture and 2X risk for subsequent hip fracture. * Osteoporosis (T-score <-2.5). * Postmenopausal women and men age 50 and older with low bone mass/osteopenia (T-score between -1.0 and -2.5) by DXA and 10-year major osteoporotic fracture greater than 20% or a 10-year probability of hip fracture greater than 3%. These fracture risks are supplied above in the FRAX score, if applicable. * Clinician judgement and/or patient preferences may indicate treatment for people with 10-year fracture probabilities above or below these levels. Dictated by: Dictated on workstation # [id number]
== END ==
LOC: RAD 09:53
PROVIDERS: ATTEND Internal Medicine Hematology & Oncology
DX: Z13.820 Encounter for screening for osteoporosis (principal); M85.852 Other specified disorders of bone density and structure, left thigh; M85.851 Other specified disorders of bone density and structure, right thigh; C50.412 Malignant neoplasm of upper-outer quadrant of left female breast; C50.112 Malignant neoplasm of central portion of left female breast
CPT/HCPCS: 77080